=== PATIENT | female | born 1970 | race Caucasian/White ===

== ENCOUNTER 2017-02-02 11:07 | Emergency (ER) | payer SELFPAY ==
[2017-02-02] MEDS ORDERED: diphenhydrAMINE HCl 25 MG CAP ONE (11:46)
[2017-02-02] MEDS ORDERED: predniSONE 20 MG TAB ONE (11:46)
[2017-02-02] MEDS ORDERED: Famotidine 20 MG TAB ONE (11:46)
== END 2017-02-02 11:50 | disposition home or self-care (01) ==
LOC: BURERS 11:07
DX: T78.49XA Other allergy, initial encounter (principal)
CPT/HCPCS: 99282; J7506

== ENCOUNTER 2017-02-04 16:03 | Emergency (ER) | payer SELFPAY ==
[2017-02-04] MEDS ORDERED: hydrOXYzine 25 MG TAB ONE (16:18)
== END 2017-02-04 16:22 | disposition home or self-care (01) ==
LOC: BURERS 16:03
DX: B86 Scabies (principal)
CPT/HCPCS: 99282